=== PATIENT | female | born 1995 | race American Indian/Alaskan Native ===

== ENCOUNTER 2017-11-04 11:08 | Emergency (ER) | payer OTHER ==
[2017-11-04 11:13] VITALS: BMI 21.0
[2017-11-04] MEDS ORDERED: Sodium Chloride 0.9% 1,000 ML IV STA (11:45)
[2017-11-04] MEDS ORDERED: Sodium Chloride 0.9% 0 ML ONE (12:09)
[2017-11-04] MEDS ORDERED: Dexamethasone 4 mg/1 ml ONE (12:10)
[2017-11-04 12:14] LABS: BASO # 0.1 K/uL (0.0-0.2); BASO % 0.7 % (0.0-2.0); HEMOGLOBIN 11.2 g/dL (11.0-16.0); LYMPH # 0.8 K/uL (1.0-4.3); LYMPH % 9.8 % (20.0-40.0); MEAN CELL VOLUME 83.1 fL (81.0-99.0); MEAN CORPUSCULAR HEMOGLOBIN 28.9 pg (27.0-31.0); MEAN CORPUSCULAR HGB CONC 34.8 g/dL (33.0-37.0); MEAN PLATELET VOLUME 7.9 fL (7.2-11.7); MONO # 0.7 K/uL (0.0-0.8); MONO % 9.2 % (0.0-10.0); NEUT # 6.4 K/uL (1.8-7.0); NEUT % 80.3 % (50.0-75.0); PLATELET COUNT 219 K/uL (130-400); RBC 3.86 Mil/uL (3.80-5.20); RED CELL DISTRIBUTION WIDTH 13.3 % (11.5-14.5)
[2017-11-04 12:26] LABS: HCG,QUALITATIVE URINE NEGATIVE (NEGATIVE)
[2017-11-04 12:33] LABS: ANISOCYTOSIS SLIGHT; LYMPHOCYTE 9 % (20-40); MONOCYTE 9 % (0-10); NEUTROPHIL 82 % (50-75); PLATELET ESTIMATE NORMAL (NORMAL); TOTAL CELLS COUNTED 100
[2017-11-04] MEDS ORDERED: cefTRIAXone IV 1 gm in Dextros 50 ML IVPB ONE (12:38)
[2017-11-04] MEDS ORDERED: Sodium Chloride 0.9% 1,000 ML ONE (12:38)
[2017-11-04 12:39] LABS: SQUAMOUS EPITHIAL 2 /hpf (0-5); URINE BILIRUBIN NEGATIVE (NEGATIVE); URINE BLOOD 3+ (NEGATIVE); URINE CLARITY Hazy (Clear); URINE COLOR Yellow (YELLOW); URINE GLUCOSE (UA) NORMAL (Normal); URINE LEUKOCYTE ESTERASE NEG Leu/uL (Negative); URINE PROTEIN NEGATIVE (NEGATIVE); URINE UROBILINOGEN NORMAL mg/dL (0.2-1.0)
[2017-11-04 13:14] VITALS: BP 97/62; PULSE 85; RESP 16; TEMP 99.3; O2SAT 100
--- NOTE | 2017-11-04 13:35 | C.PDOC ---
History Of Present Illness 22 year old female presents to the ED complaining of sore throat, fever and body aches that began yesterday. 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 She denies any nausea, vomiting, diarrhea, cough, ear pain, or any other symptoms. Time Seen by Provider: 11/04/17 11:17 Chief Complaint (Nursing): ENT Problem History Per: Patient History/Exam Limitations: None Onset/Duration Of Symptoms: Days Current Symptoms Are (Timing): Still Present Symptoms Have Been: Continuous Past Medical History Reviewed: Historical Data, Nursing Documentation, Vital Signs Vital Signs: Last Vital Signs Temp 99.3 F 11/04/17 13:14 Pulse 85 11/04/17 13:14 Resp 16 11/04/17 13:14 BP 97/62 L 11/04/17 13:14 Pulse Ox 100 11/04/17 17:38 - Medical History PMH: No Chronic Diseases Surgical History: No Surg Hx Family History: States: No Known Family Hx - Social History Hx Alcohol Use: No Hx Substance Use: No Review Of Systems Except As Marked, All Systems Reviewed And Found Negative. Constitutional: Positive for: Fever, Weakness ENT: Positive for: Throat Pain. Negative for: Ear Pain Respiratory: Negative for: Cough Gastrointestinal: Negative for: Nausea, Vomiting, Diarrhea Physical Exam - Physical Exam Appears: Non-toxic, No Acute Distress Skin: Normal Color, Warm, Dry Head: Atraumatic, Normacephalic Eye(s): bilateral: Normal Inspection Ear(s): Bilateral: Normal Nose: Normal Oral Mucosa: Moist Tongue: Normal Appearing Gingiva: Other (uvula midline ) Throat: Erythema, Exudate, Other (Enlarged tonsils ) Neck: Normal ROM, Trachea Midline, No Midline Cervical Tenderness, No Paracervical Tenderness, Supple Lymphatic: Adenopathy (submandibular lymphadenopathy) Cardiovascular: Rhythm Regular, No Murmur Respiratory: Normal Breath Sounds, No Rales, No Rhonchi, No Wheezing Extremity: Normal ROM Neurological/Psych: Oriented x3, Normal Speech Gait: Steady ED Course And Treatment - Laboratory Results Result Diagrams: 11/04/17 12:08 O2 Sat by Pulse Oximetry: 100 (RA) Pulse Ox Interpretation: Normal Progress Note: Rapid strep ordered, positive resuls. Monospot ordered, negative. Patient given Decadron, Tylenol, Rocephin IV and IV fluids. On reassessment, patient reports feeling better. Patient is tolerating PO and fever went down. Patient given Rx for Augmentin, Ibuprofen, Pepcid, and Tylenol. Patient instructed to follow up with PMD and return to the ED if symptoms persist or worsen. Disposition - Disposition Disposition: HOME/ ROUTINE Disposition Time: 13:32 Condition: STABLE Additional Instructions: Follow up with your PMD within 1-2 days. Return to ED if feel worse. Prescriptions: Amoxicillin/Clavulanate [Augmentin 875 MG-125 MG] 1 tab PO BID #20 tab Ibuprofen [Motrin Tab] 400 mg PO Q8 #30 tab Famotidine [Pepcid] 20 mg PO BID #20 tab Acetaminophen [Tylenol 325mg tab] 2 tab PO Q6 #50 tab Instructions: Strep Throat (DC) Forms: [facility] (Divehi), Work Excuse - Clinical Impression Clinical Impression: Strep pharyngitis - PA / DIRECTOR OF ACADEMIC SUPPORT / Resident Statement MD/DO has reviewed & agrees with the documentation as recorded. - Scribe Statement The provider has reviewed the documentation as recorded by the Lauraiblisa Heard All medical record entries made by the Lilia were at my direction and personally dictated by me. I have reviewed the chart and agree that the record accurately reflects my personal performance of the history, physical exam, medical decision making, and the department course for this patient. I have also personally directed, reviewed, and agree with the discharge instructions and disposition.
== END 2017-11-04 13:41 | disposition home or self-care (01) ==
LOC: C.ER 11:08
DX: J02.0 Streptococcal pharyngitis (principal)
CPT/HCPCS: 81001; 84703; 85025; 86308; 87430; 96365; 96375; 99284; J0696; J1100; J7030

== ENCOUNTER 2018-07-17 08:06 | Emergency (ER) | payer OTHER ==
[2018-07-17 08:06] VITALS: BMI 21.0
[2018-07-17 08:14] VITALS: RESP 18
--- NOTE | 2018-07-17 08:54 | C.PDOC ---
History Of Present Illness 23 y/o female presents to the ER complaining of ear pain, cough, sore throat, and body aches which have been present for the past 2 days. Patient denies having fever,chills, vomiting, and abdominal pain. Time Seen by Provider: 07/17/18 08:13 Chief Complaint (Nursing): ENT Problem History Per: Patient History/Exam Limitations: no limitations Onset/Duration Of Symptoms: Days Current Symptoms Are (Timing): Still Present Severity: Moderate Past Medical History Reviewed: Historical Data, Nursing Documentation, Vital Signs Vital Signs: Last Vital Signs Temp 98.4 F 07/17/18 08:12 Pulse 85 07/17/18 08:12 Resp 18 07/17/18 08:12 BP 99/68 L 07/17/18 08:12 Pulse Ox 99 07/17/18 08:12 - Medical History PMH: No Chronic Diseases Surgical History: No Surg Hx Family History: States: No Known Family Hx - Social History Hx Alcohol Use: No Hx Substance Use: No - Immunization History Hx Tetanus Toxoid Vaccination: No Hx Influenza Vaccination: No Hx Pneumococcal Vaccination: No Review Of Systems Except As Marked, All Systems Reviewed And Found Negative. Constitutional: Positive for: Malaise. Negative for: Fever, Chills ENT: Positive for: Throat Pain Respiratory: Positive for: Cough. Negative for: Hemoptysis Gastrointestinal: Negative for: Vomiting Physical Exam - Physical Exam Appears: Non-toxic, No Acute Distress Skin: Normal Color, Warm, Dry Head: Atraumatic, Normacephalic Eye(s): bilateral: Normal Inspection Ear(s): Bilateral: Normal Nose: Normal Oral Mucosa: Moist Tongue: Normal Appearing Lips: Normal Appearing Throat: Normal, No Erythema, No Exudate Neck: No Midline Cervical Tenderness, Supple Chest: Symmetrical Cardiovascular: Rhythm Regular Respiratory: Normal Breath Sounds, No Rales, No Rhonchi, No Wheezing Gastrointestinal/Abdominal: Normal Exam, Soft, No Tenderness, No Guarding, No Rebound Neurological/Psych: Oriented x3, Normal Speech ED Course And Treatment O2 Sat by Pulse Oximetry: 99 (RA) Pulse Ox Interpretation: Normal Progress Note: Treated with motrin 600 mg PO. Rapid strep (-) Reassessment Condition: Improved Medical Decision Making Medical Decision Making: Plan: --Rapid Strep Test --Tylenol PO Disposition Counseled Patient/Family Regarding: Studies Performed, Diagnosis, Need For Followup - Disposition Referrals: [facility] [Outside] [facility] [Outside] Disposition: HOME/ ROUTINE Disposition Time: 10:30 Condition: STABLE Additional Instructions: Follow up with clinic or PMD for further evaluation Tylenol or motrin as needed for pain Instructions: Viral Upper Respiratory Infection, Adult (DC) Forms: [employer] (Icelandic) - POA Present On Arrival: None - Clinical Impression Clinical Impression: URI (upper respiratory infection), Headache - PA / TANK WASHER / Resident Statement MD/DO has reviewed & agrees with the documentation as recorded. - Scribe Statement The provider has reviewed the documentation as recorded by the Lilia Meng Provider Attestation All medical record entries made by the Scribe were at my direction and personally dictated by me. I have reviewed the chart and agree that the record accurately reflects my personal performance of the history, physical exam, medical decision making, and the department course for this patient. I have also personally directed, reviewed, and agree with the discharge instructions and disposition.
[2018-07-17 10:22] VITALS: BP 112/78; PULSE 61; TEMP 98.7
[2018-07-17 17:43] VITALS: O2SAT 99
== END 2018-07-17 10:22 | disposition home or self-care (01) ==
LOC: C.ER 08:06
DX: J06.9 Acute upper respiratory infection, unspecified (principal); R51 Headache